=== PATIENT | male | born 1960 | race Caucasian/White ===

== ENCOUNTER 2020-04-30 05:12 | Inpatient (IN) | payer OTHER ==
[2020-04-30] MEDS ORDERED: HEPARIN SODIUM,PORCINE 5,000 UNIT/ML 1 ML VIAL IV PRN (08:58)
[2020-04-30 09:38] LABS: Basophils % (A) 0 %; Eosinophils % (A) 0 %; HCT 35.4 % (39.0-53.0); Lymphocytes # (A) 0.7 k/uL (1.0-4.8); Lymphocytes % (A) 7 %; MCH 30.2 pg (25.0-35.0); MCV 88.8 fL (80.0-100.0); Monocytes # (A) 0.6 k/uL (0-1.0); Monocytes % (A) 6 %; Neutrophils # (A) 9.2 k/uL (1.3-7.7); Neutrophils % (A) 85 %; Platelet Count 210 k/uL (150-450); RBC 3.99 m/uL (4.30-5.90); RDW 13.6 % (11.5-15.5); WBC 10.8 k/uL (3.8-10.6)
[2020-04-30 09:46] LABS: Partial Thromboplastin Time 33.1 sec (22.0-30.0); Prothrombin Time 10.3 sec (9.0-12.0)
[2020-04-30] MEDS: HEPARIN SOD,PORK IN 0.45% NACL 25,000 UNIT in 0.45% NACL 1 250ML.BAG IV SCH ×2 (09:48→21:17)
[2020-04-30] MEDS ORDERED: MORPHINE SULFATE 4 MG/ML SYRINGE IVP STA (11:37)
[2020-04-30] MEDS: ALBUTEROL HFA INHALER INHALATION SCH ×3 (11:55→20:51)
--- NOTE | 2020-04-30 12:39 | CONS ---
CONSULTATION PULMONARY/CRITICAL CARE CONSULTATION: DATE OF SERVICE: 04/30/2020 This is a 59-year-old male who was out at the airport. He was staying at the [facility] hotel at the airport planning on getting a plane to go to [facility]. Subsequent to that, the patient developed severe chest pain and shortness of breath. He also had back pain. He blamed it on the fact that he was working recently doing some construction and thought maybe he strained a muscle or something like that. It got so bad that he ended up calling EMS. EMS came to the hotel and took him to [facility] down in the city. There, he was evaluated and had a CT angiogram which showed bilateral lower lobe pulmonary emboli. He was started on IV heparin. The patient stated to them there that he wanted to be transferred to [facility] because he has a house in [place]. Hence, they transferred him and admitted him here to the hospital with a diagnosis of bilateral lower lobe pulmonary emboli. The patient lives up in [place]. His primary care physician is Dr. Cordon, who practices [facility]. Currently, he is on a basic IV, nasal O2 at 2 L and getting IV heparin. The patient apparently has no major medical problems other than gout. He did have an episode of COVID infection in early February but did not really seek much treatment for it because he states that it was relatively mild. Currently, he is resting comfortably. He is feeling a bit better. The pain and shortness of breath are improved. ALLERGIES: Include IBUPROFEN. HOME MEDICATIONS: Include [place], aspirin, and Zyloprim. MEDICAL HISTORY: COVID-19 infection recently in early February as well as gout. SURGICAL HISTORY: Mostly remote. FAMILY HISTORY: Noncontributory. SOCIAL HISTORY: Negative for tobacco, alcohol or illicit drug use. REVIEW OF SYSTEMS: CONSTITUTIONAL: Negative. NEUROLOGIC: Negative. HEENT: Negative. CARDIOVASCULAR: Chest pain. PULMONARY: Shortness of breath. GI: Negative. : Negative. RHEUMATOLOGIC: Negative. IMMUNOLOGIC: Negative. ENDOCRINOLOGIC: Negative. DERMATOLOGIC: Negative. PHYSICAL EXAMINATION: Vital signs good temperature 97.5, heart rate 74, respiratory rate 20, blood pressure 152/78, mean 102, 2 L saturations 97%. He appears in no acute distress. HEENT: Examination is grossly unremarkable. NECK: Supple, full range of motion. No adenopathy. Neck veins are flat. CARDIOVASCULAR: Examination reveals regular rhythm and rate. Heart rate mid 70s. S1, S2 normal. No S3, S4, or murmur. LUNGS: Clear. Breath sounds equal. No wheezes, rhonchi, or crackles. ABDOMEN: Soft. Bowel sounds are heard. EXTREMITIES are intact. No cyanosis, clubbing, or edema. SKIN: Without rash. NEUROLOGIC: Examination is nonfocal. LABS: Reviewed. White count 10.8, hemoglobin 12, hematocrit 35.4, platelet count 210,000. PT, INR are normal. PTT is 33.1. No x-rays here. We did look at the report from [facility]. He had a CT angiogram which revealed bilateral lower lobe pulmonary emboli. It did not talk about clot burden or a right heart strain. Current medications include IV heparin and saline IV. ASSESSMENT: 1. Bilateral lower lobe pulmonary emboli, potentially the result of a recent COVID-19 infection. 2. Recent COVID-19 infection, with a relatively mild illness, not requiring hospitalization or any particular treatment. 3. History of gout. PLAN: The patient is currently on IV heparin. The patient should probably have an echocardiogram. No additional recommendations are made. We will continue to follow. He did have a recent COVID infection in early February. He did not seek treatment for that. He is clinically quite stable. We will continue to follow. No additional recommendations are made. He could be converted over to a factor Xa inhibitor. I would definitely do an echocardiogram as well though because of the severity of his symptomatology. MMODL / IJN: [id number] /
--- NOTE | 2020-04-30 13:15 | US ---
EXAMINATION TYPE: US venous doppler duplex LE DATE OF EXAM: 04/30/2020 12:56 PM COMPARISON: NONE CLINICAL HISTORY: R/O DVT. PE SIDE PERFORMED: bilateral TECHNIQUE: The lower extremity deep venous system is examined utilizing real time linear array sonog branden with graded compression, doppler sonography and color-flow sonography. VESSELS IMAGED: Common Femoral Vein Deep Femoral Vein Greater Saphenous Vein * Femoral Vein Popliteal Vein Small Saphenous Vein * Proximal Calf Veins (* superficial vessels) Right Leg: no evidence of DVT Left Leg: no evidence of DVT. Superficial thrombus within left GSV IMPRESSION: 1. Bilateral lower extremity ultrasound negative for deep venous thrombosis. 2. Thrombus within the superficial greater saphenous vein on the left is evident.
[2020-04-30] MEDS ORDERED: KETOROLAC 15 MG/ML 1 ML VIAL IVP STA (13:28)
[2020-04-30] MEDS: amLODIPine 2.5 MG TAB PO SCH (14:57)
[2020-04-30] MEDS: HYDROcodone/APAP 7.5-325MG 1 EACH TAB PO PRN (15:03)
[2020-04-30] MEDS: KETOROLAC 15 MG/ML 1 ML VIAL IVP PRN (21:12)
[2020-04-30] MEDS: FAMOTIDINE 20 MG TAB PO SCH (21:15)
--- NOTE | 2020-04-30 22:31 | P.HPIM ---
History of Present Illness H&P Date: 04/30/20 Chief Complaint: Chest pain Patient is a 59-year-old male with a known history of coronary artery disease, recent history of left leg vein stripping during the week of 04/19/2020, Covid positive at the beginning of February, hypertension emphysema and previous history of smoking presents to ER with complaints of bilateral lower posterior chest pains and shortness of breath. Patient has been working to build cupboard in the new house for the past few days and has been having shortness of breath and chest pains which has been getting worse. Patient stayed all night in the chair and could not lie flat. Apparently patient planned to go to vacation and was at airport [facility] The car easily beat to fly to [facility]. He developed severe chest pain or shortness of breath and EMS was called. Patient was initially taken to [facility] where he had CT angiogram of the chest showed bilateral lower lobe pulmonary emboli and no right ventricular strain was noted. Patient was started on IV heparin. Patient was eventually transferred to [facility] si nce he has been laying around [place]. Patient is still having pleuritic chest pain. No fever no chills. No cough or sputum production. No nausea vomiting abdominal pain or diarrhea. Review of Systems Constitutional: Patient denies any fever or chills . No generalized weakness or weight loss. Abdomen: Patient denied nausea vomiting and diarrhea and abdominal pain. Cardiovascular: Patient does have pleuritic chest pain and shortness of breath.h no palpitations. Respiratory: Patient does have pleuritic chest pain and shortness of breath. no cough Neurologic: Patient denied any numbness or tingling headache. Musculoskeletal: Patient denies any complaints of joint swelling or deformity. Skin: Negative Psychiatric: Negative Endocrine: No heat or cold intolerance. No recent weight gain. Genitourinary: No dysuria or hematuria. All other 14 point ROS negative except the above Past Medical History Past Medical History: Coronary Artery Disease (CAD), Hypertension Additional Past Medical History / Comment(s): COVID positive at beginning of February. Emphysema History of Any Multi-Drug Resistant Organisms: None Reported Additional Past Surgical History / Comment(s): Left leg vein stripping week of 04/19 Past Anesthesia/Blood Transfusion Reactions: No Reported Reaction Past Psychological History: No Psychological Hx Reported Smoking Status: Former smoker Past Alcohol Use History: Occasional - Past Family History Father Family Medical History: Diabetes Mellitus Medications and Allergies Home Medications Medication Instructions Recorded Confirmed Type Allopurinol [Zyloprim] 100 mg PO DAILY 04/30/20 04/30/20 History Rimhkge-Ryce-Ocnr [id number] 2 tab PO HS 04/30/20 04/30/20 History [Excedrin] HYDROcodone/APAP 7.5-325MG [[place] 0.5 - 1 tab PO Q12H PRN 04/30/20 04/30/20 H istory 7.5-325] Ibuprofen [Motrin] 400 - 800 mg PO Q8H PRN 04/30/20 04/30/20 History Allergies Allergy/AdvReac Type Severity Reaction Status Date / Time ibuprofen [From Motrin] AdvReac gums bleed Verified 04/30/20 09:10 Physical Exam Vitals: Vital Signs Temp Pulse Resp BP Pulse Ox 04/30/20 11:49 98.3 F 79 18 168/76 98 04/30/20 09:54 97.5 F L 74 20 152/78 97 Intake and Output 04/29/20 04/30/20 04/30/20 22:59 06:59 14:59 Other: Weight 99.79 kg PHYSICAL EXAMINATION: Patient is lying in the bed comfortably, no acute distress, awake alert and oriented.. HEENT: Normocephalic. Neck is supple. Pupils reactive. Nostrils clear. Oral cavity is moist. Ears reveal no drainage. Neck reveals no JVD, carotid bruits, or thyromegaly. CHEST EXAMINATION: Trachea is central. Symmetrical expansion. Lung osborne clear to auscultation and percussion. CARDIAC: Normal S1, S2 with no gallops. No murmurs ABDOMEN: Soft. Bowel sounds normal. No organomegaly. No abdominal bruits. Extremities: reveal no edema. No clubbing or cyanosis Neurologically awake, alert, oriented x3 with well-coordinated movements. No focal deficits noted Skin: No rash or skin lesions. Psychiatric: Coperative. Nonsuicidal Musculoskeletal: No joint swelling or deformity. Normal range of motion. Results CBC & Chem 7: 04/30/20 09:14 Labs: Abnormal Lab Results - Last 24 Hours (Table) 04/30/20 04/30/20 Range/Units 09:14 09:14 WBC 10.8 H (3.8-10.6) k/uL RBC 3.99 L (4.30-5.90) m/uL Hgb 12.0 L (13.0-17.5) gm/dL Hct 35.4 L (39.0-53.0) % Neutrophils # 9.2 H (1.3-7.7) k/uL Lymphocytes # 0.7 L (1.0-4.8) k/uL APTT 33.1 H (22.0-30.0) sec Thrombosis Risk Factor Assmnt - DVT/VTE Prophylaxis DVT/VTE Prophylaxis: Pharmacologic Prophylaxis ordered - Choose All That Apply Any of the Below Risk Factors Present?: Yes Each Factor Represents 1 point: Age 41-60 years Thrombosis Risk Factor Assessment Total Risk Factor Score: 1 Thrombosis Risk Factor Assessment Level: Low Risk Assessment and Plan Assessment: Acute bilateral lower lobe pulmonary embolism likely secondary to recent COVID- 19 infection Recent COVID-19 infection in the beginning of February 2020 History of left leg vein stripping in the week 04/19/2020 Hypertension Emphysema History of smoking Gout not in exacerbation DVT prophylaxis patient is already on heparin drip Plan: Patient will be continued on heparin drip. Continue with pain management with morphine and Toradol IV. GI prophylaxis and follow-up closely. 2D echocardiogram was ordered and lower extremity duplex scan. Further recommendations based on the clinical course. Pulmonary is on board. Time with Patient: Greater than 30
[2020-05-01] MEDS: HYDROcodone/APAP 7.5-325MG 1 EACH TAB PO PRN ×2 (03:10→20:23)
[2020-05-01] MEDS: KETOROLAC 15 MG/ML 1 ML VIAL IVP PRN ×2 (03:12→09:04)
[2020-05-01 06:48] LABS: Basophils % (A) 1 %; Eosinophils # (A) 0.1 k/uL (0-0.7); Eosinophils % (A) 2 %; HCT 33.3 % (39.0-53.0); HGB 11.2 gm/dL (13.0-17.5); Lymphocytes # (A) 1.5 k/uL (1.0-4.8); Lymphocytes % (A) 19 %; MCH 30.1 pg (25.0-35.0); MCHC 33.5 g/dL (31.0-37.0); MCV 89.7 fL (80.0-100.0); Mean Platelet Volume 7.8; Monocytes # (A) 0.4 k/uL (0-1.0); Monocytes % (A) 5 %; Neutrophils # (A) 5.9 k/uL (1.3-7.7); Neutrophils % (A) 72 %; Platelet Count 234 k/uL (150-450); RBC 3.71 m/uL (4.30-5.90); RDW 13.6 % (11.5-15.5); WBC 8.2 k/uL (3.8-10.6)
[2020-05-01 07:18] LABS: African American GFR (CKD) >90 (>60 ml/min/1.73 sqM); Anion Gap 5 mmol/L; Blood Urea Nitrogen 25 mg/dL (9-20); Calcium 8.2 mg/dL (8.4-10.2); Carbon Dioxide 28 mmol/L (22-30); Chloride 105 mmol/L (98-107); Glucose 116 mg/dL (74-99); Non-African American GFR(CKD) 80 (>60 ml/min/1.73 sqM); Potassium 4.5 mmol/L (3.5-5.1); Sodium 138 mmol/L (137-145)
[2020-05-01] MEDS: ALBUTEROL HFA INHALER INHALATION SCH ×4 (08:08→19:50)
[2020-05-01] MEDS: FAMOTIDINE 20 MG TAB PO SCH ×2 (08:23→20:23)
[2020-05-01] MEDS: amLODIPine 2.5 MG TAB PO SCH (08:23)
[2020-05-01] MEDS: allopurinoL 100 MG TAB PO SCH (08:24)
[2020-05-01] MEDS: HEPARIN SOD,PORK IN 0.45% NACL 25,000 UNIT in 0.45% NACL 1 250ML.BAG IV SCH (09:37)
[2020-05-01] MEDS ORDERED: APIXABAN 5 MG TAB PO STA (12:17)
--- NOTE | 2020-05-01 14:10 | PN ---
PROGRESS NOTE PULMONARY/CRITICAL CARE PROGRESS NOTE: DATE OF SERVICE: 05/01/2019 This is a 59-year-old male who was recently diagnosed as having bilateral pulmonary emboli, involving the lower lobes. The patient was initially transported to [facility] and then shipped up here because he lives up in this area. The patient remains on an IV heparin drip. The patient remains on O2 at 2 L. He is feeling much better. The heparin can be discontinued in favor of a factor Xa inhibitor. PAST MEDICAL HISTORY: Includes recent COVID infection in early February, as well as a prior history of gout. Clinically, he is doing much better. PHYSICAL EXAMINATION: VITAL SIGNS: Current vital signs include temperature 98.4, heart rate 74, respiratory rate 18, blood pressure 133/77, mean 95, and room air saturation 94%. Appears in no acute distress. HEENT: Examination is grossly unremarkable. NECK: Supple. Full range of motion. No adenopathy. Neck veins are flat. CARDIOVASCULAR: Examination reveals regular rhythm and rate. S1, S2 normal. No S3, S4, or murmur. Heart rate 74 beats per minute. LUNGS: Reveal relatively clear breath sounds. No wheezes, rhonchi, or crackles. ABDOMEN: Soft. EXTREMITIES: Intact. No cyanosis, clubbing, or edema. SKIN: Without rash. NEUROLOGIC: Examination is brief but nonfocal. LABS: Reviewed. White count 8.2, hemoglobin 11.2, hematocrit 33.3, platelet count is normal. PTT was 54.1. Sodium, potassium chloride, CO2 all normal. Anion gap normal. BUN and creatinine were 25 and 1.02. Calcium 8.2. Microbiology is negative. Dopplers of the lower extremities were negative for DVT. CURRENT MEDICATIONS: Include albuterol inhaler, allopurinol, amlodipine, Eliquis, famotidine, and [place]. The patient is also on Toradol. ASSESSMENT: 1. Bilateral lower lobe pulmonary emboli, potentially the result of hypercoagulability induced by his recent COVID-19 infection. 2. Recent COVID-19 infection with a relatively mild illness, not requiring hospitalization for oxygen. 3. History of gout. PLAN: The patient is doing well. The patient could be switched over to a factor Xa inhibitor such as Eliquis or Xarelto. The patient could be considered for discharge. We will allow the primary to make that decision. No additional recommendations are made. The patient needs to follow up with me in the office. In addition, he should follow up with his primary care physician, Dr. Cordon, who practices in [place]. The patient will need a subsequent CT scan of the chest. We can do one in 8-[address] Additional recommendations and suggestions are forthcoming. Prognosis is guarded. The patient should probably be treated for at least six months. MMODL / IJN: [id number] /
[2020-05-01] MEDS: APIXABAN 5 MG TAB PO SCH (20:23)
--- NOTE | 2020-05-01 23:51 | P.PN ---
Subjective Progress Note Date: 05/01/20 Principal diagnosis: Acute bilateral lower lobe pulmonary embolism likely secondary to recent COVID- 19 infection Patient is a 59-year-old male with a known history of coronary artery disease, recent history of left leg vein stripping during the week of 04/19/2020, Covid positive at the beginning of February, hypertension emphysema and previous history of smoking presents to ER with complaints of bilateral lower posterior chest pains and shortness of breath. Patient has been working to build cupboard in the new house for the past few days and has been having shortness of breath and chest pains which has been getting worse. Patient stayed all night in the chair and could not lie flat. Apparently patient planned to go to vacation and [facility]. He developed severe chest pain or shortness of breath and EMS was called. Patient was initially taken to [facility] where he had CT angiogram of the chest showed bilateral lower lobe pulmonary emboli and no right ventricular strain was noted. Patient was started on IV heparin. Patient was eventually transferred to [facility] since he has been laying around [place]. Patient is still having pleuritic chest pain. No fever no chills. No cough or sputum production. No nausea vomiting abdominal pain or diarrhea. 05/01/20 Pt. is currently resting n the bed. chest pain is better. pain with deep breathing and SOB is improving. Heparin IV chaged to oral anticoagulants. Current medications reviewed. Objective - Vital Signs Vital signs: Vital Signs Temp 98.9 F 05/01/20 15:22 Pulse 85 05/01/20 15:22 Resp 18 05/01/20 15:22 BP 149/87 05/01/20 15:22 Pulse Ox 94 L 05/01/20 15:22 Intake & Output 05/01/20 05/01/20 05/02/20 06:59 18:59 06:59 Intake Total 050.069 2128.531 Output Total 200 Balance 6.264 1041.531 Weight 95 kg Intake: IV 100 Heparin Sod,Pork in 0.45% 100 NaCl 25,000 unit In 0.45 % NaCl 1 250ml.bag @ 18 UNITS/KG/HR 17.962 mls/hr IV .[id number] [facility] Rx#: [id number] Intake, IV Titration 206.264 221.531 Amount Heparin Sod,Pork in 0.45% 206.264 221.531 NaCl 25,000 unit In 0.45 % NaCl 1 250ml.bag @ 18 UNITS/KG/HR 17.962 mls/hr IV .[id number] [facility] Rx#: [id number] Oral 720 Output: Urine 200 Other: Voiding Method Toilet Toilet # Voids 2 - Exam PHYSICAL EXAMINATION: Patient is lying in the bed comfortably, no acute distress, awake alert and oriented.. HEENT: Normocephalic. Neck is supple. Pupils reactive. Nostrils clear. Oral cavity is moist. Ears reveal no drainage. Neck reveals no JVD, carotid bruits, or thyromegaly. CHEST EXAMINATION: Trachea is central. Symmetrical expansion. Lung osborne clear to auscultation and percussion. CARDIAC: Normal S1, S2 with no gallops. No murmurs ABDOMEN: Soft. Bowel sounds normal. No organomegaly. No abdominal bruits. Extremities: reveal no edema. No clubbing or cyanosis Neurologically awake, alert, oriented x3 with well-coordinated movements. No focal deficits noted Skin: No rash or skin lesions. Psychiatric: Coperative. Nonsuicidal Musculoskeletal: No joint swelling or deformity. Normal range of motion. - Labs CBC & Chem 7: 05/01/20 06:37 05/01/20 06:37 Labs: Abnormal Lab Results - Last 24 Hours (Table) 05/01/20 05/01/20 05/01/20 Range/Units 06:37 06:37 06:37 RBC 3.71 L (4.30-5.90) m/uL Hgb 11.2 L (13.0-17.5) gm/dL Hct 33.3 L (39.0-53.0) % APTT 54.1 H (22.0-30.0) sec BUN 25 H (9-20) mg/dL Glucose 116 H (74-99) mg/dL Calcium 8.2 L (8.4-10.2) mg/dL Assessment and Plan Assessment: Acute bilateral lower lobe pulmonary embolism likely secondary to recent COVID- 19 infection Recent COVID-19 infection in the beginning of February 2020 History of left leg vein stripping in the week 04/19/2020 Hypertension Emphysema History of smoking Gout not in exacerbation DVT prophylaxis patient is already on heparin drip Plan: Patient was continued on heparin drip. staretd NOAC, Continue with pain management with morphine and Toradol IV. GI prophylaxis and follow-up closely. 2D echocardiogram was ordered and lower extremity duplex scan. Further recommendations based on the clinical course. Pulmonary is on board. Time with Patient: Greater than 30
[2020-05-02] MEDS: KETOROLAC 15 MG/ML 1 ML VIAL IVP PRN (06:30)
[2020-05-02] MEDS: ALBUTEROL HFA INHALER INHALATION SCH ×2 (07:17→11:49)
[2020-05-02 07:55] VITALS: RESP 18; TEMP 97.6
[2020-05-02] MEDS: APIXABAN 5 MG TAB PO SCH ×2 (07:56→13:05)
[2020-05-02] MEDS: FAMOTIDINE 20 MG TAB PO SCH (07:56)
[2020-05-02] MEDS: allopurinoL 100 MG TAB PO SCH (07:56)
[2020-05-02] MEDS: amLODIPine 2.5 MG TAB PO SCH (07:56)
--- NOTE | 2020-05-02 09:32 | ECHOF ---
Referral Reason:Bilat PE, r/o strain MEASUREMENTS -------- HEIGHT: 157.5 cm WEIGHT: 99.8 kg BP: IVSd: 1.4 cm (0.6 - 1.1) LVIDd: 4.1 cm (3.9 - 5.3) LVPWd: 1.1 cm (0.6 - 1.1) IVSs: 1.4 cm LVIDs: 2.9 cm LVPWs: 1.5 cm RVIDd: 3.3 cm (< 3.3) Ao Diam: 3.1 cm (2.0 - 3.7) AV Cusp: 1.8 cm (1.5 - 2.6) EPSS: 0.3 cm MV E Jerman: 0.70 m/s MV DecT: 176 ms MV A Jerman: 0.75 m/s MV E/A Ratio: 0.92 RAP: 5.00 mmHg RVSP: 33.28 mmHg MV EF SLOPE: 125.38 mm/s (70 - 150) MV EXCURSION: 19.44 mm (> 18.000) TAPSE: 29.93 mm FINDINGS -------- Sinus rhythm. This was a technically good study. Positive Covid in February. LV size, wall thickness and systolic function are normal, with an EF greater than 55%. The left steve tricular size is normal. The right ventricle is normal in size. The left atrial size is normal. The right atrial size is normal. There is mild aortic valve sclerosis without stenosis. Mild mitral regurgitation is present. Mild tricuspid regurgitation present. Right ventricular systolic pressure is normal at < 35 mmHg. Trace/mild (physiologic) pulmonic regurgitation. The aortic root size is normal. There is no pericardial effusion. CONCLUSIONS -------- 1. Positive Covid in February. 2. LV size, wall thickness and systolic function are normal, with an EF greater than 55%. 3. The left ventricular size is normal. 4. The right ventricle is normal in size. 5. The left atrial size is normal. 6. The right atrial size is normal. 7. There is mild aortic valve sclerosis without stenosis. 8. Mild mitral regurgitation is present. 9. Mild tricuspid regurgitation present. 10. Trace/mild (physiologic) pulmonic regurgitation. 11. The aortic root size is normal. 12. There is no pericardial effusion. [employer]CH [employer] PRESS OPERATOR: Ana Cruz RDCS
[2020-05-02 11:18] VITALS: BP 149/81; PULSE 74
--- NOTE | 2020-05-02 12:47 | PN ---
PROGRESS NOTE PULMONARY/CRITICAL CARE PROGRESS NOTE: DATE OF SERVICE: 05/02/2020 59-year-old male recently seen and diagnosed with bilateral pulmonary emboli. The patient was initially transported to [facility] and then shipped up here because he lives up in this area. The patient has been switched to a factor Xa inhibitor, i.e. Eliquis. The patient will follow with me in the office in a couple weeks. I did mention to him that he will need a followup CT scan in about 10 or so weeks. Currently, he is feeling well. His saturations on room air are excellent. His medical history includes a previous episode of COVID infection in early February. He also has a history of gout. PHYSICAL EXAMINATION: VITAL SIGNS: Current vital signs include a temperature 97.6, heart rate 74, respiratory rate 18, blood pressure 149/81, mean 103, room air saturation 96%. Appears in no acute distress. HEENT: Examination is grossly unremarkable. NECK: Supple. Full range of motion. No adenopathy. Neck veins are flat. CARDIOVASCULAR: Examination reveals regular rhythm and rate. S1, S2 normal. No S3, S4, or murmur. LUNGS: Reveal clear breath sounds, equal. No wheezes, rhonchi, or crackles. ABDOMEN: Soft. Bowel sounds are heard. EXTREMITIES are intact. There is no cyanosis, clubbing, or edema. SKIN: Without rash. NEUROLOGIC: Examination is brief but nonfocal. LABS: No labs from today. Microbiology is negative. No recent x-rays. Venous Dopplers of the lower extremities on April 30 were negative for DVT. CT angiogram from the outside hospital was reviewed. CURRENT MEDICATIONS: Include albuterol inhaler, allopurinol, amlodipine, Eliquis, Pepcid, [place], and Toradol. ASSESSMENT: 1. Bilateral lower lobe pulmonary emboli, potentially the result of hypercoagulability, induced by his recent COVID-19 infection. 2. Recent COVID-19 infection with a relatively mild illness, not requiring hospitalization for oxygen therapy. 3. History of gout. PLAN: The patient will be discharged on Eliquis. He will see me back in a couple weeks. A repeat CT scan will be obtained in about 10 weeks. No additional recommendations are made. We should treat this patient for up to 6 months. We will continue to follow. MMODL / IJN: [id number] /
--- NOTE | 2020-05-17 23:47 | P.DS ---
Providers Date of admission: 04/30/20 08:26 Expected date of discharge: 05/02/20 Attending physician: Marilee Kam Consults: 04/30/20 08:58 Consult Physician Routine Consulting Provider: Maikel Lugo Consult Reason/Comments: Bilateral PE's (HX of COVID in February) Do you want consulting provider notified?: Yes Placement Type Exists?: Yes Primary care physician: Stated None Hospital Course: Discharge diagnosis Acute bilateral lower lobe pulmonary embolism likely secondary to recent COVID- 19 infection Recent COVID-19 infection in the beginning of February 2020 History of left leg vein stripping in the week 04/19/2020 Hypertension Emphysema History of smoking Gout not in exacerbation DVT prophylaxis patient is already on heparin drip Hospital course Patient is a 59-year-old male with a known history of coronary artery disease, recent history of left leg vein stripping during the week of 04/19/2020, Covid positive at the beginning of February, hypertension emphysema and previous history of smoking presents to ER with complaints of bilateral lower posterior chest pains and shortness of breath. Patient has been working to build cupboard in the [employer] for the past few days and has been having shortness of breath and chest pains which has been getting worse. Patient stayed all night in the chair and could not lie flat. Apparently [facility] go [facility] He developed severe chest pain or shortness of breath and EMS was called. Patient was initially taken to [facility] where he had CT angiogram of the chest showed bilateral lower lobe pulmonary emboli and no right ventricular strain was noted. Patient was started on IV heparin. Patient was eventually transferred to [facility] since he has been laying around [place]. Patient is still having pleuritic chest pain. No fever no chills. No cough or sputum production. No nausea vomiting abdominal pain or diarrhea. 05/01/20 Pt. is currently resting n the bed. chest pain is better. pain with deep breathing and SOB is improving. Heparin IV chaged to oral anticoagulants. 05/02/2020 Patient is currently resting in the bed comfortably. No complaints of chest pain or shortness breath. Patient will be continued on oral anticoagulants. No fever no chills. No headache or dizziness or lightheadedness. No nausea vomiting or abdominal pain or diarrhea. Patient did improve symptomatically. Patient will be discharged home and follow-up with primary care physician and pulmonary as an outpatient. Patient will need 3 to 6 months of full anticoagulation. PHYSICAL EXAMINATION: Patient is lying in the bed comfortably, no acute distress, awake alert and oriented.. HEENT: Normocephalic. Neck is supple. Pupils reactive. Nostrils clear. Oral cavity is moist. Ears reveal no drainage. Neck reveals no JVD, carotid bruits, or thyromegaly. CHEST EXAMINATION: Trachea is central. Symmetrical expansion. Lung osborne clear to auscultation and percussion. CARDIAC: Normal S1, S2 with no gallops. No murmurs ABDOMEN: Soft. Bowel sounds normal. No organomegaly. No abdominal bruits. Extremities: reveal no edema. No clubbing or cyanosis Neurologically awake, alert, oriented x3 with well-coordinated movements. No focal deficits noted Skin: No rash or skin lesions. Psychiatric: Coperative. Nonsuicidal Musculoskeletal: No joint swelling or deformity. Normal range of motion. Discharge physical examination was done and vitals reviewed. Patient Condition at Discharge: Good Plan - Discharge Summary Discharge Rx Participant: No New Discharge Prescriptions: New Apixaban [Eliquis Starter Pack (for VTE)] 0 mg PO DIRECTED 30 Days #1 pack amLODIPine [Norvasc] 2.5 mg PO DAILY #30 tab Continue Ibuprofen [Motrin] 400 - 800 mg PO Q8H PRN PRN Reason: Pain HYDROcodone/APAP 7.5-325MG [[place] 7.5-325] 0.5 - 1 tab PO Q12H PRN PRN Reason: Pain Allopurinol [Zyloprim] 100 mg PO DAILY [id number]-[id number]-Elus [phone] [Excedrin] 2 tab PO HS Discharge Medication List Allopurinol [Zyloprim] 100 mg PO DAILY 04/30/20 [History] Atskdxn-Scro-Hjsg [phone] [Excedrin] 2 tab PO HS 04/30/20 [History] HYDROcodone/APAP 7.5-325MG [[place] 7.5-325] 0.5 - 1 tab PO Q12H PRN 04/30/20 [History] Ibuprofen [Motrin] 400 - 800 mg PO Q8H PRN 04/30/20 [History] Apixaban [Eliquis Starter Pack (for VTE)] 0 mg PO DIRECTED 30 Days #1 pack 05/02/20 [Rx] amLODIPine [Norvasc] 2.5 mg PO DAILY #30 tab 05/02/20 [Rx] Follow up Appointment(s)/Referral(s): Physician, Primary Care [Other] - 1-2 Days Jamie Torres DO [Doctor of Osteopathic Medicine] - 1 Week Patient Instructions/Handouts: Pulmonary Embolism (DC) Discharge Disposition: HOME SELF-CARE
== END 2020-05-02 14:02 | disposition home or self-care (01) | DRG 176 ==
LOC: 3SCARD 08:26
PROVIDERS: ADMIT Internal Medicine; ATTEND Internal Medicine
DX: I26.99 Other pulmonary embolism without acute cor pulmonale (principal); I10 Essential (primary) hypertension; I25.10 Atherosclerotic heart disease of native coronary artery without angina pectoris; J43.9 Emphysema, unspecified; M10.9 Gout, unspecified; Z79.899 Other long term (current) drug therapy; Z83.3 Family history of diabetes mellitus; Z87.891 Personal history of nicotine dependence; Z79.1 Long term (current) use of non-steroidal anti-inflammatories (NSAID); Z79.82 Long term (current) use of aspirin; Z86.16 Personal history of COVID-19
CPT/HCPCS: 80048; 85025; 85610; 85730; 93306; 93970; 94640

== ENCOUNTER → 2020-06-08 | Outpatient (CLI) | payer OTHER ==
--- NOTE | 2020-06-08 15:51 | CT ---
EXAMINATION TYPE: CT angio chest DATE OF EXAM: 06/08/2020 COMPARISON: CT 04/30/2020 HISTORY: PE CT DLP: 464.2 mGycm Automated exposure control for dose reduction was used. CONTRAST: CTA scan of the thorax is performed with IV Contrast, patient injected with 91cc mL of Isovue 370, pu lmonary embolism protocol. MIP images are created and reviewed. 3D reconstructed images are created on an independent workstation and reviewed. FINDINGS: LUNGS: The lungs are remarkable for some peripheral honeycombing greater on the right lower lobe, aer ation is improved as compared to prior exam, there is no concerning parenchymal mass or nodule identi fied, subpleural nodular density with some central lucency on axial image #104 is thought likely to b e postinflammatory. There is no pleural effusion or pneumothorax seen. The tracheobronchial tree i s patent. AORTA: No additional significant abnormality is seen. MEDIASTINUM: There is satisfactory enhancement of the pulmonary artery and its branches, there is no CT evidence for pulmonary embolism. There are no greater than 1 cm hilar or mediastinal lymph nodes. No pericardial effusion is seen. OTHER: No additional significant abnormality is seen. IMPRESSION: PULMONARY EMBOLISM HAS RESOLVED. THERE IS INTERVAL IMPROVED AERATION AT THE LUNG BASES.
== END | disposition home or self-care (01) ==
LOC: RADCTMAIN 15:01
PROVIDERS: ATTEND Internal Medicine
DX: J98.4 Other disorders of lung (principal)
CPT/HCPCS: 71275; Q9967

== ENCOUNTER 2024-03-07 11:53 | Emergency (ER) | payer OTHER ==
[2024-03-07 12:02] VITALS: RESP 18
--- NOTE | 2024-03-07 12:33 | ED ---
Lower Extremity Injury HPI - General Chief Complaint: Extremity Injury, Lower Stated Complaint: hip pain Time Seen by Provider: 03/07/24 12:09 Source: patient, RN notes reviewed Mode of arrival: ambulatory Limitations: physical limitation - History of Present Illness Initial Comments: This is a 63-year-old male presenting to the emergency department for chief complaint of right hip and groin pain. Patient states that approximately 2 weeks ago he was hunting in a elevated deer blind when he fell out of the stand and was hanging by his right leg for little while at the time. Patient denies falling at the time of this event. Patient has been having pain of the right hip since described as a burning sensation that starts from his medial groin and radiates into his knee. Patient denies loss of bladder or bowel continence or saddle anesthesias. Denies previous surgeries of the right hip. Patient has not had any imaging after injury. - Related Data Home Medications Medication Instructions Recorded Confirmed Knislcz-Jblh-Zwec [phone] 2 tab PO HS 04/30/20 04/30/20 [Excedrin] HYDROcodone/APAP 7.5-325MG [[place] 0.5 - 1 tab PO Q12H PRN 04/30/20 04/30/20 7.5-325] Ibuprofen [Motrin] 400 - 800 mg PO Q8H PRN 04/30/20 04/30/20 allopurinoL [Zyloprim] 100 mg PO DAILY 04/30/20 04/30/20 Previous Rx's Medication Instructions Recorded Apixaban [Eliquis Starter Pack 0 mg PO DIRECTED 30 Days #1 pack 05/02/20 (for VTE)] amLODIPine [Norvasc] 2.5 mg PO DAILY #30 tab 05/02/20 Cyclobenzaprine [Flexeril] 10 mg PO TID PRN #15 tab 03/07/24 predniSONE 50 mg PO DAILY #5 tab 03/07/24 Allergies Allergy/AdvReac Type Severity Reaction Status Date / Time ibuprofen [From Motrin] AdvReac gums bleed Verified 03/07/24 12:02 Review of Systems ROS Statement: Those systems with pertinent positive or pertinent negative responses have been documented in the HPI. ROS Other: All systems not noted in ROS Statement are negative. Past Medical History Past Medical History: Coronary Artery Disease (CAD), Hypertension Additional Past Medical History / Comment(s): BOB positive at beginning of Nov ember. Emphysema History of Any Multi-Drug Resistant Organisms: None Reported Additional Past Surgical History / Comment(s): Left leg vein stripping week of 04/19 Past Anesthesia/Blood Transfusion Reactions: No Reported Reaction Past Psychological History: No Psychological Hx Reported Smoking Status: Former smoker Past Alcohol Use History: Occasional - Past Family History Father Family Medical History: Diabetes Mellitus General Exam Limitations: physical limitation General appearance: alert, in no apparent distress ENT exam: Present: normal exam, mucous membranes moist Neck exam: Present: normal inspection. Absent: tenderness, meningismus, lymphadenopathy Respiratory exam: Present: normal lung sounds bilaterally. Absent: respiratory distress, wheezes, rales, rhonchi, stridor Cardiovascular Exam: Present: regular rate, normal rhythm, normal heart sounds. Absent: systolic murmur, diastolic murmur, rubs, gallop, clicks GI/Abdominal exam: Present: soft, normal bowel sounds. Absent: distended, tenderness, guarding, rebound, rigid Right Hip exam: Present: tenderness. Absent: normal inspection, full ROM, swelling, abrasion Neurovascular tendon exam: Present: no vascular compromise. Absent: pulse deficit, abnormal cap refill Gait: observed and limited by pain Back exam: Present: normal inspection Neurological exam: Present: alert, oriented X3, CN II-XII intact Course Vital Signs 03/07/24 03/07/24 11:57 14:38 Temperature 97.8 F 98.8 F Pulse Rate 79 69 Respiratory 18 18 Rate Blood Pressure 154/88 149/86 O2 Sat by Pulse 97 97 Oximetry Medical Decision Making - Medical Decision Making Was pt. sent in by a medical professional or institution (, PA, MANAGER MASS, urgent care, hospital, or residential...) When possible be specific @ -No Did you speak to anyone other than the patient for history (EMS, parent, family, police, friend...)? What history was obtained from this source @ -No Did you review nursing and triage notes (agree or disagree)? Why? @ -I reviewed and agree with nursing and triage notes Were old charts reviewed (outside hosp., previous admission, EMS record, old EKG, old radiological studies, urgent care reports/EKG's, residential records)? Report findings @ -No old charts were reviewed Differential Diagnosis (chest pain, altered mental status, abdominal pain women, abdominal pain men, vaginal bleeding, weakness, fever, dyspnea, syncope, headache, dizziness, GI bleed, back pain, seizure, CVA, palpatations, mental health, musculoskeletal)? @ -Differential Musculoskeletal Muscular strain, contusion, ligament sprain, fracture, arthritis, septic arthritis, bursitis, cellulitis, muscle spasm, nerve compression, DVT, arterial occlusion, herpes zoster, electrolyte abnormality, tumor.... This is not meant to be in all inclusive list EKG interpreted by me (3pts min.). @ -None X-rays interpreted by me (1pt min.). @ -None done CT interpreted by me (1pt min.). @ -CT of the pelvis without contrast reveals no acute fracture or dislocation with moderate degenerative disc disease of L5-S1. U/S interpreted by me (1pt. min.). @ -None done What testing was considered but not performed or refused? (CT, X-rays, U/S, labs)? Why? @ -None What meds were considered but not given or refused? Why? @ -None Did you discuss the management of the patient with other professionals (professionals i.e. , PA, MANAGER MASS, lab, RT, psych nurse, nephrology social worker, manager ccu, teacher, disability liaison officer, window caser)? Give summary @ -No Was smoking cessation discussed for >3mins.? @ -No Was critical care preformed (if so, how long)? @ -No Were there social determinants of health that impacted care today? How? (Homelessness, low income, unemployed, alcoholism, drug addiction, transportation, low edu. Level, literacy, decrease access to med. care, [facility], rehab)? @ -No Was there de-escalation of care discussed even if they declined (Discuss DNR or withdrawal of care, Hospice)? DNR status @ -No What co-morbidities impacted this encounter? (DM, HTN, Smoking, COPD, CAD, Cancer, CVA, ARF, Chemo, Hep., AIDS, mental health diagnosis, sleep apnea, morbid obesity)? @ -None Was patient admitted / discharged? Hospital course, mention meds given and route, prescriptions, significant lab abnormalities, going to OR and other pertinent info. @ -Discharge. 63 male with right hip pain. Patient is able to ambulate with mild pain. Neurovascular exam no acute deficits. Patient has pain with passive range of motion of the right hip. CT of the pelvis no evidence of acute fracture or dislocation. Patient is provided with outpatient prescription for steroids and muscle relaxer. Additionally he is given a starter pack of Tylenol 3 to take as needed for pain. Recommend that patient follows up with primary care provider for potential MRI for further evaluation of soft tissue. Continue to rest, elevate, use heat as needed. Discussed with Dr. Pulido Undiagnosed new problem with uncertain prognosis? @ -No Drug Therapy requiring intensive monitoring for toxicity (Heparin, Nitro, Insulin, Cardizem)? @ -No Were any procedures done? @ -No Diagnosis/symptom? @ -Right hip strain Acute, or Chronic, or Acute on Chronic? @ -Acute Uncomplicated (without systemic symptoms) or Complicated (systemic symptoms)? @ -Uncomplicated Side effects of treatment? @ -No Exacerbation, Progression, or Severe Exacerbation? @ -No Poses a threat to life or bodily function? How? (Chest pain, USA, ID, pneumonia, PE, COPD, DKA, ARF, appy, cholecystitis, CVA, Diverticulitis, Homicidal, Suicidal, threat to staff... and all critical care pts) @ -No Disposition Clinical Impression: Strain of right hip Disposition: HOME SELF-CARE Condition: Stable Instructions (If sedation given, give patient instructions): Hip Pain (ED) Additional Instructions: Please return to the Emergency Department if symptoms worsen or any other concerns. recommend that you continue supportive treatment at home using Tylenol/Motrin, rest, elevate. Additionally, follow-up with patient services specialist for further evaluation. Prescriptions: Cyclobenzaprine [Flexeril] 10 mg PO TID PRN #15 tab PRN Reason: Muscle Spasm predniSONE 50 mg PO DAILY #5 tab Is patient prescribed a controlled substance at d/c from ED?: No Referrals: None,Stated [REFERRING] - 1-2 days Time of Disposition: 13:36
--- NOTE | 2024-03-07 13:15 | CT ---
EXAMINATION TYPE: CT pelvis wo con CT DLP: 472.3 mGycm, Automated exposure control for dose reduction was used. DATE OF EXAM: 03/07/2024 1:05 PM COMPARISON: None INDICATION:Male, 63 years old with history of previous injury, pain, paresthesias; RIGHT HIP PAIN TECHNIQUE: Standard CT of the pelvis without IV or oral contrast. Lack of IV or oral contrast limit s evaluation of solid and hollow organ viscera. Coronal and sagittal reformats were performed. FINDINGS: BLADDER: Unremarkable REPRODUCTIVE: Coarse calcifications of the prostate gland are identified. BOWEL: Distal colonic diverticulosis without evidence for acute diverticulitis. No visualized focal b owel wall thickening or surrounding inflammatory changes. No evidence of bowel obstruction. PERITONEUM: No evidence of pneumoperitoneum or free fluid. VASCULATURE: Atherosclerotic calcification of the distal abdominal aorta and its branches. MUSCULOSKELETAL: No acute osseous abnormalities. Mild degenerative changes in the bilateral SI joints . Mild retrolisthesis L5 and S1. No pars defects. Degenerative disc disease L5-S1 with disc space dc rowing, vacuum disc disease, endplate sclerosis, and anterior osteophytosis. No significant hip joint space narrowing or osteoarthritic change. LYMPH NODES: No gross evidence for lymphadenopathy. SOFT TISSUE/ABDOMINAL WALL: Unremarkable IMPRESSION: 1. No acute fracture or dislocation. 2. Mild retrolisthesis L5 on S1 with moderate degenerative disc disease. 3. Distal colonic diverticulosis without evidence for acute diverticulitis. [facility], , 03/07/2024 1:12 PM
[2024-03-07] MEDS: HYDROmorphone 0.5 MG/0.5 ML SYRINGE IM STA (14:13)
[2024-03-07] MEDS: ACET/COD 300 MG/30 MG STARTER PACK 6 TAB BTL PO STA (14:14)
[2024-03-07 14:40] VITALS: BP 149/86; PULSE 69; TEMP 98.8
== END 2024-03-07 14:38 | disposition home or self-care (01) ==
LOC: EC 11:53
DX: S76.011A Strain of muscle, fascia and tendon of right hip, initial encounter (principal); Z86.16 Personal history of COVID-19; Z88.6 Allergy status to analgesic agent; Z87.891 Personal history of nicotine dependence; X58.XXXA Exposure to other specified factors, initial encounter
CPT/HCPCS: 72192; 99283; 96372; J1171